=== PATIENT | female | born 1950 | race Caucasian/White ===

== ENCOUNTER 2020-05-13 17:40 | Emergency (ER) | payer OTHER ==
[~2020-05-13] VITALS: Ht 152.4 cm; Wt 48.1 kg
[2020-05-13 17:46] VITALS: Ht 152.4 cm; Wt 48.1 kg
[2020-05-13 19:37] VITALS: BP 122/74
== END 2020-05-13 19:37 | disposition home or self-care (01) ==
LOC: ED 17:40
DX: S92.002A Unspecified fracture of left calcaneus, initial encounter for closed fracture (principal); S22.089A Unspecified fracture of T11-T12 vertebra, initial encounter for closed fracture; X58.XXXA Exposure to other specified factors, initial encounter; Y93.89 Activity, other specified; Y92.89 Other specified places as the place of occurrence of the external cause; Y99.8 Other external cause status

== ENCOUNTER 2020-05-18 21:24 | Emergency (ER) | payer OTHER ==
[~2020-05-18] VITALS: Ht 152.4 cm; Wt 45.4 kg
[2020-05-18 21:41] VITALS: Ht 152.4 cm; Wt 45.4 kg
[2020-05-19 00:52] VITALS: BP 132/77
== END 2020-05-19 00:52 | disposition home or self-care (01) ==
LOC: ED 21:24
DX: S22.089A Unspecified fracture of T11-T12 vertebra, initial encounter for closed fracture (principal); S82.892A Other fracture of left lower leg, initial encounter for closed fracture; S76.012A Strain of muscle, fascia and tendon of left hip, initial encounter; W18.30XA Fall on same level, unspecified, initial encounter; Y93.89 Activity, other specified; Y92.89 Other specified places as the place of occurrence of the external cause; Y99.8 Other external cause status